=== PATIENT | male | born 1990 | race African-American/Black ===

== ENCOUNTER 2022-11-08 11:20 | Outpatient (CLI) | payer OTHER, SELFPAY ==
--- NOTE | 2022-11-08 13:10 | NEURO_ITS ---
Impression: # Complains of left upper extremity pain/discomfort of 6-8 weeks. # No Carpal Tunnel Syndrome or ulnar neuropathy. # Normal Needle/EMG exam. # Clinical correlation recommended. Considered the possibility of Parsonage Cohen Syndrome but no decrement of motor unit potentials noted,also no neurogenic changes noted.. Nerve Conduction Studies Anti Sensory Summary Table Stim Site NR Peak (ms) P-T Amp (?V) Site1 Site2 Delta-P (ms) Dist (cm) John (m/s) Left Median Anti Sensory (2-3nd Digit) Wrist 3.2 49.2 Wrist 2-3nd Digit 3.2 14.0 44 Wrist 3.2 57.7 Wrist 2-3nd Digit 3.2 14.0 44 Left Radial Anti Sensory (Base 1st Digit) Wrist 2.1 32.4 Wrist Base 1st Digit 2.1 0.0 Left Ulnar Anti Sensory (5th Digit) Wrist 2.8 32.6 Wrist 5th Digit 2.8 14.0 50 Motor Summary Table Stim Site NR Onset (ms) O-P Amp (mV) Site1 Site2 Delta-0 (ms) Dist (cm) John (m/s) Left Median Motor (Abd Poll Brev) Wrist 3.4 3.4 Elbow Wrist 5.8 34.0 59 Elbow 9.2 3.3 Left Ulnar Motor (Abd Dig Minimi) Wrist 2.6 6.1 A Elbow Wrist 6.2 34.0 55 A Elbow 8.8 4.6 F Wave Studies NR F-Lat (ms) L-R F-Lat (ms) Left Median (Mrkrs) (Abd Poll Brev) 30.14 Left Ulnar (Mrkrs) (Abd Dig Min) 31.31 EMG Side Muscle Nerve Root Ins Act Fibs Amp Dur Recrt Comment Left 1stDorInt Ulnar C8-T1 Nml Nml Nml Nml Nml Left Ext Indicis Radial (Post Int) C7-8 Nml Nml Nml Nml Nml Left Ext Digitorum Radial (Post Int) C7-8 Nml Nml Nml Nml Nml Left BrachioRad Radial C5-6 Nml Nml Nml Nml Nml Left PronatorTeres Median C6-7 Nml Nml Nml Nml Nml Left Abd Poll Brev Median C8-T1 Nml Nml Nml Nml Nml Left ABD Dig Min Ulnar C8-T1 Nml Nml Nml Nml Nml Left Biceps Musculocut C5-6 Nml Nml Nml Nml Nml Left Triceps Radial C6-7-8 Nml Nml Nml Nml Nml Left Deltoid Axillary C5-6 Nml Nml Nml Nml Nml MTDD
== END 2022-11-08 11:21 | disposition home or self-care (01) ==
PROVIDERS: PCP Internal Medicine Infectious Disease; Visit Provider Internal Medicine Infectious Disease
DX: M62.81 Muscle weakness (generalized) (principal)
CPT/HCPCS: 95886; 95909